=== PATIENT | female | born 1990 | race Caucasian/White ===

== ENCOUNTER 2017-04-20 19:14 | Emergency (ER) | payer BC ==
--- NOTE | 2017-04-20 19:51 | EDM.PDOC ---
ED HPI GENERAL MEDICAL PROBLEM - General Chief Complaint: Allergic Reaction Stated Complaint: REACTION TO DYE FROM XRAY Time Seen by Provider: 04/20/17 19:37 Source of Information: Reports: Patient History Limitations: Reports: No Limitations - History of Present Illness INITIAL COMMENTS - FREE TEXT/NARRATIVE: This is a 26-year-old female. Yesterday she had a hysterosalpingogram. She told a dance class that evening. Then about 1 AM this morning she woke up with the dog outside and noted she had a mild headache. She went back to sleep when she awoke this morning she had an increased headache basically in the forehead and the base of the skull. She denies any stiffness of her neck. She did call OB and let them know and they indicated to her that she might be having an allergic reaction to the dye. So they told her take some Benadryl and some ibuprofen and now her headache is much better but since it hasn't resolved she comes to the ER for evaluation. The headache is in the forehead about a 1 out of 10 in the back of the neck and skull may be a 3 out of 10. Her is a chiropractor and adjust her neck several times today so her neck feels good. She denies any swelling in her throat no difficulty in swallowing no difficulty in breathing. She's had no rash. She has been drinking lots of water and urinating a lot to try to get rid of this dye that she had yesterday. She denies any fever chills no cough no cold no other acute symptoms. Neck Pain Score (Numeric/FACES): 4 - Related Data Allergies Allergy/AdvReac Type Severity Reaction Status Date / Time ear drops. Allergy Cannot Uncoded 11/23/15 10:24 Remember Home Meds: Home Meds Control. 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 History: Reports: Endometriosis Neurological History: Reports: Other (See Below) Other Neuro History: TBI Psychiatric History: Reports: Anxiety, Depression, PTSD - Past Surgical History HEENT Surgical History: Reports: Tonsillectomy, Other (See Below) Other HEENT Surgeries/Procedures: ear surgery Musculoskeletal Surgical History: Reports: Other (See Below) Other Musculoskeletal Surgeries/Procedures:: compartment syndrome in legs Social & Family History - Family History Family Medical History: Noncontributory - Tobacco Use Smoking Status *Q: Never Smoker Second Hand Smoke Exposure: No - Caffeine Use Caffeine Use: Reports: None - Recreational Drug Use Recreational Drug Use: No - Living Situation & Occupation Living situation: Reports: , with Spouse Occupation: Employed ED ROS ALLERGIC REACTION - Review of Systems Review Of Systems: See Below Constitutional: Denies: Fever, Chills HEENT: Reports: No Symptoms Respiratory: Denies: Shortness of Breath, Wheezing, Cough Cardiovascular: Denies: Chest Pain Endocrine: Reports: No Symptoms GI/Abdominal: Reports: Nausea. Denies: Abdominal Pain, Vomiting : Reports: Frequency Musculoskeletal: Reports: No Symptoms Skin: Reports: Other (No rash or urticaria) Neurological: Reports: Headache Psychiatric: Reports: No Symptoms Hematologic/Lymphatic: Reports: No Symptoms ED EXAM GENERAL NO PERIP PULSE - Physical Exam Exam: See Below Exam Limited By: No Limitations General Appearance: Alert, WD/WN, No Apparent Distress Eye Exam: Bilateral Eye: Normal Inspection Ears: Normal External Exam Nose: Normal Inspection Throat/Mouth: Normal Inspection, Normal Lips, Normal Oropharynx, Normal Voice, No Airway Compromise Head: Normocephalic Neck: Supple, Non-Tender Respiratory/Chest: No Respiratory Distress, Lungs Clear, Normal Breath Sounds Cardiovascular: Regular Rate, Rhythm, No Murmur GI/Abdominal: Soft, Non-Tender, Other (Some mild uterus soreness noted by the patient) Back Exam: Full Range of Motion Extremities: Normal Inspection, Normal Range of Motion Neurological: Alert, Oriented Psychiatric: Normal Affect, Normal Mood Skin Exam: Warm, Dry, Other (No obvious rash or urticaria) Course - Vital Signs Last Recorded V/S: Last Vital Signs Temp 97.5 F 04/20/17 19:30 Pulse 81 04/20/17 19:30 Resp 18 04/20/17 19:30 BP 157/82 H 04/20/17 19:30 Pulse Ox 98 04/20/17 19:30 - Orders/Labs/Meds Labs: Laboratory Tests 04/20/17 04/20/17 Range/Units 20:05 20:05 WBC 7.11 (3.98-10.04) K/mm3 RBC 4.37 (3.98-5.22) M/mm3 Hgb 12.9 (11.2-15.7) gm/L Hct 39.3 (34.1-44.9) % MCV 89.9 (79.4-94.8) fl MCH 29.5 (25.6-32.2) pg MCHC 32.8 (32.2-35.5) g/dl RDW Std Deviation 44.4 (36.4-46.3) fL Plt Count 346 (182-369) K/mm3 MPV 9.2 L (9.4-12.3) fl Neut % (Auto) 59.8 (34.0-71.1) % Lymph % (Auto) 29.5 (19.3-51.7) % [place] % (Auto) 8.9 (4.7-12.5) % Eos % (Auto) 1.3 (0.7-5.8) Baso % (Auto) 0.4 (0.1-1.2) % Neut # (Auto) 4.25 (1.56-6.13) K/mm3 Lymph # (Auto) 2.10 (1.18-3.74) K/mm3 [place] # (Auto) 0.63 H (0.24-0.36) K/mm3 Eos # (Auto) 0.09 (0.04-0.36) K/mm3 Baso # (Auto) 0.03 (0.01-0.08) K/mm3 Sodium 142 (136-145) mEq/L Potassium 3.8 (3.5-5.1) mEq/L Chloride 107 (98-107) mEq/L Carbon Dioxide 25 (21-32) mEq/L Anion Gap 13.8 (5-15) BUN 10 (7-18) mg/dL Creatinine 0.8 (0.55-1.02) mg/dL Est Cr Clr Drug Dosing 104.96 mL/min Estimated GFR (MDRD) > 60 (>60) mL/min BUN/Creatinine Ratio 12.5 L (14-18) Glucose 103 (74-106) mg/dL Calcium 8.5 (8.5-10.1) mg/dL Total Bilirubin 0.2 (0.2-1.0) mg/dL AST 25 (15-37) U/L ALT 50 (14-59) U/L Alkaline Phosphatase 72 (46-116) U/L Total Protein 7.4 (6.4-8.2) g/dl Albumin 3.8 (3.4-5.0) g/dl Globulin 3.6 gm/dL Albumin/Globulin Ratio 1.1 (1-2) - Re-Assessments/Exams Free Text/Narrative Re-Assessment/Exam: 04/20/17 20:57 Spoke to the patient regarding the CBC and the chem panel and everything was absolutely normal. I encouraged her to take it easy over the weekend and continue with the Benadryl as needed and ibuprofen as needed. If her symptoms worsen she needs to return to the ER over the weekend otherwise follow-up with her doctor on Sunday. Departure - Departure Time of Disposition: 20:57 Disposition: Home, Self-Care 01 Condition: Good Clinical Impression: Adverse reaction to contrast media Qualifiers: Encounter type: initial encounter Qualified Code(s): T50.8X5A - Adverse effect of diagnostic agents, initial encounter - Discharge Information Referrals: PCP,None [Primary Care Provider] - Forms: ED Department Discharge Additional Instructions: Over the weekend and take it easy light activity rest and sleep, continue with the Benadryl 25 mg every 6 hours as needed, continue with the ibuprofen as needed, follow up with your family doctor on Sunday, return to the ER if your symptoms worsen over the weekend
== END 2017-04-20 21:03 | disposition home or self-care (01) ==
LOC: JD.ED 19:14
DX: R51 Headache (principal); T50.8X5A Adverse effect of diagnostic agents, initial encounter; Z88.8 Allergy status to other drugs, medicaments and biological substances
CPT/HCPCS: 36415; 80053; 85025; 99283; 99284

== ENCOUNTER 2018-08-11 20:36 | Inpatient (IN) | payer BC ==
[2018-08-11] MEDS ORDERED: Sodium Chloride 0.9% 10 ML Syringe FLUSH PRN (21:15)
[2018-08-11] MEDS ORDERED: Lactated Ringers 1,000 ML IV SCH (21:15)
[2018-08-11] MEDS ORDERED: Nalbuphine 10 MG/1 ML Vial IVPUSH PRN (21:15)
[2018-08-11] MEDS ORDERED: Oxytocin/Lactated Ringers 20 UNIT/1,000 ML BAG IV SCH (21:15)
[2018-08-11] MEDS ORDERED: Oxytocin 10 Units/1 ML SDV ONE (21:26)
[2018-08-11] MEDS ORDERED: Lidocaine 1% 50 ML MDV INJECT ONE (21:30)
[2018-08-11] MEDS ORDERED: Oxytocin 10 Units/1 ML SDV IM ONE (21:33)
--- NOTE | 2018-08-11 21:54 | PCM.LDHP ---
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 02/06/18 blood type O- positive antibody screen negative hemoglobin/hematocrit 13.6/40.3 platelets 367, 000, rubella immune, serology nonreactive, urine culture mixed meredith, hepatitis B surface antigen negative, HIV negative, GC chlamydia negative. TSH 1.631. 06/06/18 hemoglobin/hematocrit 12.5/38.0 platelets 269,000 OB glucose screen 154 06/12/18 3 hour glucose tolerance test fasting blood sugar 84, 1 hour 199, two- hour 180, 3 hour 125. 07/31/18 group B strep negative. Improves with: Reports: None Worsens with: Reports: None Associated Symptoms: Reports: N - Related Data Allergies/Adverse Reactions: Allergies Allergy/AdvReac Type Severity Reaction Status Date / Time ear drops. Allergy Cannot Uncoded 11/23/15 10:24 Remember IV contrast AdvReac Mild Headache Uncoded 04/20/17 21:20 Home Medications: Home Meds Control. 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: Reports: Endometriosis Neurological History: Reports: Other (See Below) Other Neuro History: TBI Psychiatric History: Reports: Anxiety, Depression, PTSD - Past Surgical History HEENT Surgical History: Reports: Tonsillectomy, Other (See Below) Other HEENT Surgeries/Procedures: ear surgery Musculoskeletal Surgical History: Reports: Other (See Below) Other Musculoskeletal Surgeries/Procedures:: compartment syndrome in legs Social & Family History - Family History Family Medical History: Noncontributory - Caffeine Use Caffeine Use: Reports: None - Living Situation & Occupation Living situation: Reports: , with Spouse Occupation: Employed H&P Review of Systems - Review of Systems: Review Of Systems: See Below General: Reports: No Symptoms HEENT: Reports: No Symptoms Pulmonary: Reports: No Symptoms Cardiovascular: Reports: No Symptoms Gastrointestinal: Reports: No Symptoms Genitourinary: Reports: No Symptoms Musculoskeletal: Reports: No Symptoms Skin: Reports: No Symptoms Psychiatric: Reports: No Symptoms Neurological: Reports: No Symptoms Hematologic/Lymphatic: Reports: No Symptoms Immunologic: Reports: No Symptoms L&D Exam - Exam Exam: See Below - OB Specific Fundal Height In cm: 37 Contraction Duration (sec): 60 Contraction Frequency (min): 3 Contraction Intensity: Moderate to Strong Movement: Active Heart Tones: Present Heart Tones per Min: 140 Heart Rate (FHR) Variability: Moderate (6-25 bmp) Presentation: Vertex - Camacho Score Camacho Score Cervix Position: Anterior Camacho Score Consistency: Soft Camacho Score Effacement: >80% Camacho Score Dilation: > 5 cm Camacho Score 's Station: +1, +2 Camacho Score Total: 13 - Exam General: Alert, Oriented HEENT: Conjunctiva Clear, Mucosa Moist & [place] Neck: Supple, Trachea Midline Lungs: Clear to Auscultation, Normal Respiratory Effort Cardiovascular: Regular Rate, Regular Rhythm GI/Abdominal Exam: Normal Bowel Sounds, Soft, Non-Tender Genitourinary: Normal external exam Extremities: Normal Inspection, Normal Range of Motion, Non-Tender, No Pedal Edema, Normal Capillary Refill Skin: Warm, Dry, Intact Psychiatric: Alert, Normal Affect, Normal Mood - Problem List (1) 37 weeks gestation of SNOMED Code(s): 31642784 ICD Code: Z3A.37 - 37 WEEKS GESTATION OF Status: Acute Current Visit: Yes Problem List Initiated/Reviewed/Updated: No Orders Last 24hrs: Active Orders 24 hr Category Date Time Status Patient Status [ADT] Routine ADT 08/11/18 21:15 Active Activity as Tolerated [RC] PFP Care 08/11/18 21:15 Active Communication Order [RC] ASDIRECTED Care 08/11/18 21:15 Active Heart Tones [RC] ASDIRECTED Care 08/11/18 21:15 Active Non Stress Test [RC] PER UNIT ROUTINE Care 08/11/18 21:14 Active Non Stress Test [RC] PER UNIT ROUTINE Care 08/11/18 21:15 Active Notify Provider [RC] PFP Care 08/11/18 21:15 Active Notify Provider [RC] PRN Care 08/11/18 21:15 Active Peripheral IV Care [RC] . DIRECTED Care 08/11/18 21:15 Active Vital Signs [RC] PER UNIT ROUTINE Care 08/11/18 21:14 Active Vital Signs [RC] PER UNIT ROUTINE Care 08/11/18 21:15 Active CBC WITH AUTO DIFF [HEME] Stat Lab 08/11/18 21:15 Ordered RAPID PLASMA REAGIN,RPR [CHEM] Routine Lab 08/11/18 21:15 Ordered Lactated Ringers [Ringers, Lactated] 1,000 ml Med 08/11/18 21:15 Active IV ASDIRECTED Nalbuphine [Nubain] Med 08/11/18 21:15 Active 10 mg IVPUSH Q2H PRN Oxytocin/Lactated Ringers [Pitocin in LR 20 Units/1,000 Med 08/11/18 21:15 Active ML] 20 unit in 1,000 ml IV .CONTINUOUS Sodium Chloride 0.9% [Saline Flush] Med 08/11/18 21:15 Active 10 ml FLUSH ASDIRECTED PRN Electronic Heart Tones Ext w TOCO [WOMSER] Oth 08/11/18 21:15 Ordered Routine Electronic Heart Tones Internal [WOMSER] Per Unit Oth 08/11/18 21:15 Ordered Routine Peripheral IV Insertion Adult [OM.PC] Routine Oth 08/11/18 21:15 Ordered Resuscitation Status Routine Resus Stat 08/11/18 21:14 Ordered Medication Orders Lactated Ringer's (Ringers, Lactated) 1,000 mls @ 100 mls/hr IV ASDIRECTED VALENCIA Oxytocin/Lactated Ringer's (Pitocin In Lr 20 Units/1,000 Ml) 20 unit in 1,000 mls @ 100 mls/hr IV .CONTINUOUS VALENCIA Nalbuphine HCl (Nubain) 10 mg IVPUSH Q2H PRN PRN Reason: Pain Sodium Chloride (Saline Flush) 10 ml FLUSH ASDIRECTED PRN PRN Reason: Keep Vein Open Assessment/Plan Comment:: Plan: Delivery
--- NOTE | 2018-08-11 21:58 | PCM.DEL ---
L & D Note - General Info Date of Service: 08/11/18 Mother's Due Date: 09/01/18 - Delivery Note Labor: Spontaneous Delivery Outcome: Livebirth (Male liveborn Sunday08/11/18 at 2127 hrs. INDRA nuchal cord 1 tight Apgars 8/9 weight pending) Infant Delivery Method: Spontaneous Vaginal Delivery-Single Infant Delivery Mode: Spontaneous Presentation: Left Occiput Anterior (INDRA) Nuchal Cord: Present (Times one tight reduced over the head) Prep: Povidone-Iodine (Betadine Anesthesia Type: Local (Or first-degree laceration midline repair) Anesthetic: Lidocaine (Xylocaine) 1% Plain Local Anesthetic Volume: 5cc Amniotic Fluid Description: Clear Episiotomy Type: None Laceration: 1st Degree (Midline) Suture type: Other (Monocryl) Suture size: 3-0 Placenta: Intact, Spontaneous (Spontaneous delivery of placenta at 2130 hrs. intact central cord insertion discarded) Cord: 3 Vessels Estimated Blood Loss: 250 Resuscitation Needed: No : Suctioned, Bulb Syringe, Stimulated, Warmed, [place] Used, Warmer Used Provider: David Varner Score 1 min: 8 Score 5 min: 9 - General Info Date of Service: 08/11/18 Functional Status: Reports: Pain Controlled - Review of Systems General: Reports: No Symptoms HEENT: Reports: No Symptoms Pulmonary: Reports: No Symptoms Cardiovascular: Reports: No Symptoms Gastrointestinal: Reports: No Symptoms Genitourinary: Reports: No Symptoms Musculoskeletal: Reports: No Symptoms Skin: Reports: No Symptoms Neurological: Reports: No Symptoms Psychiatric: Reports: No Symptoms - Patient Data Med Orders - Current: Current Medications Lactated Ringer's (Ringers, Lactated) 1,000 mls @ 100 mls/hr IV ASDIRECTED VALENCIA Oxytocin/Lactated Ringer's (Pitocin In Lr 20 Units/1,000 Ml) 20 unit in 1,000 mls @ 100 mls/hr IV .CONTINUOUS VALENCIA Nalbuphine HCl (Nubain) 10 mg IVPUSH Q2H PRN PRN Reason: Pain Sodium Chloride (Saline Flush) 10 ml FLUSH ASDIRECTED PRN PRN Reason: Keep Vein Open Discontinued Medications Oxytocin (Pitocin) Confirm Administered Dose 10 unit .ROUTE .[facility]-MED ONE Stop: 08/11/18 21:27 - Exam General: Alert, Oriented HEENT: Pupils Equal, Mucous Membr. Moist/[place] Neck: Supple Lungs: Clear to Auscultation, Normal Respiratory Effort Cardiovascular: Regular Rate, Regular Rhythm GI/Abdominal Exam: Normal Bowel Sounds (Female) Exam: Normal External Exam Extremities: Normal Inspection, Normal Range of Motion, Non-Tender, No Pedal Edema, Normal Capillary Refill Skin: Warm, Dry, Intact Neurological: No New Focal Deficit Psy/Mental Status: Alert, Normal Affect, Normal Mood - Problem List & Annotations (1) 37 weeks gestation of SNOMED Code(s): 71009869 Code(s): Z3A.37 - 37 WEEKS GESTATION OF Status: Acute Current Visit: Yes (2) Encounter for full-term uncomplicated delivery SNOMED Code(s): 563876844 Code(s): O80 - ENCOUNTER FOR FULL-TERM UNCOMPLICATED DELIVERY Status: Acute Current Visit: Yes (3) Nuchal cord without compression, delivered, current hospitalization SNOMED Code(s): 02681044, 905417876 Code(s): O69.81X0 - LABOR AND DEL COMP BY CORD AROUND NECK, W/O COMPRSN, UNSP Status: Acute Current Visit: Yes - Problem List Review Problem List Initiated/Reviewed/Updated: No - My Orders Last 24 Hours: My Active Orders 08/11/18 21:14 Non Stress Test [RC] PER UNIT ROUTINE Vital Signs [RC] PER UNIT ROUTINE Resuscitation Status Routine 08/11/18 21:15 Patient Status [ADT] Routine Activity as Tolerated [RC] PFP Communication Order [RC] ASDIRECTED Heart Tones [RC] ASDIRECTED Non Stress Test [RC] PER UNIT ROUTINE Notify Provider [RC] PFP Notify Provider [RC] PRN Peripheral IV Care [RC] . DIRECTED Vital Signs [RC] PER UNIT ROUTINE CBC WITH AUTO DIFF [HEME] Stat RAPID PLASMA REAGIN,RPR [CHEM] Routine Lactated Ringers [Ringers, Lactated] 1,000 ml IV ASDIRECTED Nalbuphine [Nubain] 10 mg IVPUSH Q2H PRN Oxytocin/Lactated Ringers [Pitocin in LR 20 Units/1,000 ML] 20 unit in 1,000 ml IV .CONTINUOUS Sodium Chloride 0.9% [Saline Flush] 10 ml FLUSH ASDIRECTED PRN Electronic Heart Tones Ext w TOCO [WOMSER] Routine Electronic Heart Tones Internal [WOMSER] Per Unit Routine Peripheral IV Insertion Adult [OM.PC] Routine - Plan Plan:: Plan: Delivery
[2018-08-11] MEDS ORDERED: Acetaminophen 325 MG Tab PO PRN (23:35)
[2018-08-11] MEDS ORDERED: Docusate Sodium 100 MG Cap PO PRN (23:35)
[2018-08-11] MEDS ORDERED: Lanolin 100% Cream 7 GM Tube TOP PRN (23:35)
[2018-08-11] MEDS ORDERED: Ibuprofen 600 MG Tab PO PRN (23:35)
[2018-08-11] MEDS ORDERED: Lactated Ringers 1,000 ML ONE (23:58)
[2018-08-12] MEDS ORDERED: Lactated Ringers 1,000 ML IV ONE (00:30)
[2018-08-12] MEDS: Witch Hazel Medicated Pads 40/Jar TOP PRN (03:34)
[2018-08-12] MEDS: Benzocaine/Menthol 20%-0.5% Spray 56 GM Canister TOP PRN (03:35)
--- NOTE | 2018-08-12 08:19 | PCM.PNPP ---
- General Info Date of Service: 08/12/18 Subjective Update: Blurred vision double vision or visual changes, no right upper quadrant pain no anxiety or feeling of hyperactivity. Functional Status: Reports: Pain Controlled Pain Score: 0 - Review of Systems General: Reports: No Symptoms HEENT: Reports: No Symptoms Pulmonary: Reports: No Symptoms Cardiovascular: Reports: No Symptoms Gastrointestinal: Reports: No Symptoms Genitourinary: Reports: No Symptoms Musculoskeletal: Reports: No Symptoms Skin: Reports: No Symptoms Neurological: Reports: No Symptoms Psychiatric: Reports: No Symptoms - General Info Date of Service: 08/12/18 - Patient Data Vital Signs - Most Recent: Last Vital Signs Temp 97.9 F 08/12/18 04:54 Pulse 70 08/12/18 04:54 Resp 14 08/12/18 04:54 BP 120/81 08/12/18 04:54 Pulse Ox 96 08/12/18 04:54 Weight - Most Recent: 167 lb 12.8 oz I&O - Last 24 Hours: Intake & Output 08/11/18 08/12/18 08/12/18 22:59 06:59 14:59 Intake Total 1999 Balance 1999 Lab Results - Last 24 Hours: Laboratory Results - last 24 hr 08/12/18 Range/Units 05:49 WBC 17.16 H (3.98-10.04) K/mm3 RBC 3.86 L (3.98-5.22) M/mm3 Hgb 11.8 (11.2-15.7) gm/L Hct 34.7 (34.1-44.9) % MCV 89.9 (79.4-94.8) fl MCH 30.6 (25.6-32.2) pg MCHC 34.0 (32.2-35.5) g/dl RDW Std Deviation 43.5 (36.4-46.3) fL Plt Count 215 (182-369) K/mm3 MPV 10.6 (9.4-12.3) fl Neut % (Auto) 78.9 H (34.0-71.1) % Lymph % (Auto) 11.7 L (19.3-51.7) % [place] % (Auto) 8.9 (4.7-12.5) % Eos % (Auto) 0.1 L (0.7-5.8) Baso % (Auto) 0.1 (0.1-1.2) % Neut # (Auto) 13.56 H (1.56-6.13) K/mm3 Lymph # (Auto) 2.00 (1.18-3.74) K/mm3 [place] # (Auto) 1.52 H (0.24-0.36) K/mm3 Eos # (Auto) 0.02 L (0.04-0.36) K/mm3 Baso # (Auto) 0.01 (0.01-0.08) K/mm3 Manual Slide Review Abnormal smear Med Orders - Current: Current Medications Acetaminophen (Tylenol) 650 mg PO Q4H PRN PRN Reason: mild pain or fever Benzocaine/Menthol (Dermoplast Pain Relief [place]) 0 gm TOP ASDIRECTED PRN PRN Reason: Perineal Comfort Measure Last Admin: 08/12/18 03:35 Dose: 1 canister Docusate Sodium (Colace) 100 mg PO BID PRN PRN Reason: Constipation Emollient Ointment (Lansinoh Hpa) 0 gm TOP ASDIRECTED PRN PRN Reason: Sore Nipples Ibuprofen (Motrin) 600 mg PO Q4H PRN PRN Reason: Mild pain or fever Witch Echo (Tucks) 1 pad TOP ASDIRECTED PRN PRN Reason: Perineal Comfort Measure Last Admin: 08/12/18 03:34 Dose: 1 jar Discontinued Medications Lactated Ringer's (Ringers, Lactated) 1,000 mls @ 100 mls/hr IV ASDIRECTED VALENCIA Oxytocin/Lactated Ringer's (Pitocin In Lr 20 Units/1,000 Ml) 20 unit in 1,000 mls @ 100 mls/hr IV .CONTINUOUS VALENCIA Last Admin: 08/11/18 22:12 Dose: 100 mls/hr Lactated Ringer's (Ringers, Lactated) Confirm Administered Dose 1,000 mls @ as directed .ROUTE .STK-MED ONE Stop: 08/11/18 23:59 Last Admin: 08/12/18 03:22 Dose: Not Given Lactated Ringer's (Ringers, Lactated) 1,000 mls @ 999 mls/hr IV .BOLUS ONE Stop: 08/12/18 01:30 Last Admin: 08/12/18 00:30 Dose: 999 mls/hr Lidocaine HCl (Xylocaine 1%) 50 ml INJECT ONETIME ONE Stop: 08/11/18 21:31 Last Admin: 08/11/18 21:30 Dose: 50 ml Nalbuphine HCl (Nubain) 10 mg IVPUSH Q2H PRN PRN Reason: Pain Oxytocin (Pitocin) Confirm Administered Dose 10 unit .ROUTE .STK-MED ONE Stop: 08/11/18 21:27 Last Admin: 08/12/18 03:23 Dose: Not Given Oxytocin (Pitocin) 10 unit IM ONETIME ONE Stop: 08/11/18 21:34 Last Admin: 08/11/18 21:33 Dose: 10 unit Sodium Chloride (Saline Flush) 10 ml FLUSH ASDIRECTED PRN PRN Reason: Keep Vein Open - Interaction Disposition, : at Bedside Interaction: Holding Infant Feeding: Breastfed ; Nursed Well Support Person: - Recovery Exam Fundal Tone: Firm Fundal Level: At Umbilicus Fundal Placement: Midline Lochia Amount: Small, Moderate Lochia Color: Rubra/Red Perineum Description: Other (see below) Other Perinuem Description: 1st degree laceration with repair Episiotomy/Laceration: Approximated Urinary Elimination: Voided - Exam General: Alert, Oriented HEENT: Pupils Equal, Pupils Reactive, Mucous Membr. Moist/[place] Neck: Supple Lungs: Clear to Auscultation, Normal Respiratory Effort Cardiovascular: Regular Rate, Regular Rhythm GI/Abdominal Exam: Normal Bowel Sounds, Soft, Non-Tender (uterus involuting normally), No Distention Extremities: Normal Inspection, Normal Range of Motion, Non-Tender, No Pedal Edema, Normal Capillary Refill Skin: Warm, Dry, Intact Wound/Incisions: Healing Well Neurological: No New Focal Deficit, Reflexes Equal Bilateral (3+, clonus 1 beat both ankles) Psy/Mental Status: Alert, Normal Affect, Normal Mood (no agitation) - Problem List & Annotations (1) 37 weeks gestation of SNOMED Code(s): 24835313 Code(s): Z3A.37 - 37 WEEKS GESTATION OF Status: Acute Current Visit: Yes (2) Encounter for full-term uncomplicated delivery SNOMED Code(s): 740429885 Code(s): O80 - ENCOUNTER FOR FULL-TERM UNCOMPLICATED DELIVERY Status: Acute Current Visit: Yes (3) Nuchal cord without compression, delivered, current hospitalization SNOMED Code(s): 72083663, 369969736 Code(s): O69.81X0 - LABOR AND DEL COMP BY CORD AROUND NECK, W/O COMPRSN, UNSP Status: Acute Current Visit: Yes (4) Hypertension, condition or complication SNOMED Code(s): 14640998, 54231595, 841371477 Code(s): O16.5 - UNSPECIFIED MATERNAL HYPERTENSION, COMP THE PUERPERIUM Status: Acute Current Visit: Yes - Problem List Review Problem List Initiated/Reviewed/Updated: No - My Orders Last 24 Hours: My Active Orders 08/11/18 21:14 Non Stress Test [RC] PER UNIT ROUTINE Vital Signs [RC] PER UNIT ROUTINE Resuscitation Status Routine 08/11/18 21:15 Activity as Tolerated [RC] PFP Communication Order [RC] ASDIRECTED Heart Tones [RC] ASDIRECTED Non Stress Test [RC] PER UNIT ROUTINE Notify Provider [RC] PFP Notify Provider [RC] PRN Peripheral IV Care [RC] . DIRECTED Vital Signs [RC] PER UNIT ROUTINE 08/11/18 23:35 Activity as Tolerated [RC] PER UNIT ROUTINE Vital Signs [RC] 03,09,15,21 Acetaminophen [Tylenol] 650 mg PO Q4H PRN Benzocaine/Menthol [Dermoplast Pain Relief [place]] See Dose Instructions TOP ASDIRECTED PRN Docusate Sodium [Colace] 100 mg PO BID PRN Ibuprofen [Motrin] 600 mg PO Q4H PRN Lanolin [Lansinoh HPA] See Dose Instructions TOP ASDIRECTED PRN Witch Echo [Tucks] 1 pad TOP ASDIRECTED PRN Assess Lochia [WOMSER] Per Unit Routine Assess Uterine Involution [WOMSER] Per Unit Routine Breast Pump [WOMSER] Per Unit Routine Heat Therapy [OM.PC] PRN Medication Administration Instruction [OM.PC] Routine Perineal Care [OM.PC] Per Unit Routine Sitz Bath [OM.PC] Per Unit Routine 08/11/18 Dinner Regular Diet [DIET] 08/12/18 05:49 RAPID PLASMA REAGIN,RPR [CHEM] Routine 08/12/18 23:35 Heat Therapy [OM.PC] PRN - Assessment Assessment:: PIH labs ordered. Patient looks stable no anxiety or agitation. - Plan Plan:: Plan: Delivery
--- NOTE | 2018-08-13 06:36 | PCM.DCSUM1 ---
Discharge Summary - Hospital Course Free Text/Narrative:: [facility] LIVE L/D Delivery Note Patient Name: ANNIKA STEIN Date of : 86 Patient Status: Inpatient Attending Provider: David Varner Date: 08/11/18 21:55 Initialization Date: 08/11/18 21:55 L & D Note - General Info Date of Service: 08/11/18 Mother's Due Date: 09/01/18 - Delivery Note Labor: Spontaneous Delivery Outcome: Livebirth (Male liveborn Sunday08/11/18 at 2127 hrs. INDRA nuchal cord 1 tight Apgars 8/9 weight pending) Infant Delivery Method: Spontaneous Vaginal Delivery-Single Infant Delivery Mode: Spontaneous Presentation: Left Occiput Anterior (INDRA) Nuchal Cord: Present (Times one tight reduced over the head) Prep: Povidone-Iodine (Betadine Anesthesia Type: Local (Or first-degree laceration midline repair) Anesthetic: Lidocaine (Xylocaine) 1% Plain Local Anesthetic Volume: 5cc Amniotic Fluid Description: Clear Episiotomy Type: None Laceration: 1st Degree (Midline) Suture type: Other (Monocryl) Suture size: 3-0 Placenta: Intact, Spontaneous (Spontaneous delivery of placenta at 2130 hrs. intact central cord insertion discarded) Cord: 3 Vessels Estimated Blood Loss: 250 Resuscitation Needed: No [place]: Suctioned, Bulb Syringe, Stimulated, Warmed, [place] Used, Warmer Used Provider: David Varner Score 1 min: 8 Score 5 min: 9 - General Info Date of Service: 08/11/18 Functional Status: Reports: Pain Controlled - Review of Systems General: Reports: No Symptoms HEENT: Reports: No Symptoms Pulmonary: Reports: No Symptoms Cardiovascular: Reports: No Symptoms Gastrointestinal: Reports: No Symptoms Genitourinary: Reports: No Symptoms Musculoskeletal: Reports: No Symptoms Skin: Reports: No Symptoms Neurological: Reports: No Symptoms Psychiatric: Reports: No Symptoms - Patient Data Med Orders - Current: Current Medications Lactated Ringer's (Ringers, Lactated) 1,000 mls @ 100 mls/hr IV ASDIRECTED VALENCIA Oxytocin/Lactated Ringer's (Pitocin In Lr 20 Units/1,000 Ml) 20 unit in 1,000 mls @ 100 mls/hr IV .CONTINUOUS VALENCIA Nalbuphine HCl (Nubain) 10 mg IVPUSH Q2H PRN PRN Reason: Pain Sodium Chloride (Saline Flush) 10 ml FLUSH ASDIRECTED PRN PRN Reason: Keep Vein Open Discontinued Medications Oxytocin (Pitocin) Confirm Administered Dose 10 unit .ROUTE .STK-MED ONE Stop: 08/11/18 21:27 - Exam General: Alert, Oriented HEENT: Pupils Equal, Mucous Membr. Moist/[place] Neck: Supple Lungs: Clear to Auscultation, Normal Respiratory Effort Cardiovascular: Regular Rate, Regular Rhythm GI/Abdominal Exam: Normal Bowel Sounds (Female) Exam: Normal External Exam Extremities: Normal Inspection, Normal Range of Motion, Non-Tender, No Pedal Edema, Normal Capillary Refill Skin: Warm, Dry, Intact Neurological: No New Focal Deficit Psy/Mental Status: Alert, Normal Affect, Normal Mood - Problem List & Annotations (1) 37 weeks gestation of SNOMED Code(s): 24765771 Code(s): Z3A.37 - 37 WEEKS GESTATION OF Status: Acute Current Visit: Yes (2) Encounter for full-term uncomplicated delivery SNOMED Code(s): 755603577 Code(s): O80 - ENCOUNTER FOR FULL-TERM UNCOMPLICATED DELIVERY Status: Acute Current Visit: Yes (3) Nuchal cord without compression, delivered, current hospitalization SNOMED Code(s): 70255711, 894437256 Code(s): O69.81X0 - LABOR AND DEL COMP BY CORD AROUND NECK, W/O COMPRSN, UNSP Status: Acute Current Visit: Yes - Problem List Review Problem List Initiated/Reviewed/Updated: No - My Orders Last 24 Hours: My Active Orders 08/11/18 21:14 Non Stress Test [RC] PER UNIT ROUTINE Vital Signs [RC] PER UNIT ROUTINE Resuscitation Status Routine 08/11/18 21:15 Patient Status [ADT] Routine Activity as Tolerated [RC] PFP Communication Order [RC] ASDIRECTED Heart Tones [RC] ASDIRECTED Non Stress Test [RC] PER UNIT ROUTINE Notify Provider [RC] PFP Notify Provider [RC] PRN Peripheral IV Care [RC] . DIRECTED Vital Signs [RC] PER UNIT ROUTINE CBC WITH AUTO DIFF [HEME] Stat RAPID PLASMA REAGIN,RPR [CHEM] Routine Lactated Ringers [Ringers, Lactated] 1,000 ml IV ASDIRECTED Nalbuphine [Nubain] 10 mg IVPUSH Q2H PRN Oxytocin/Lactated Ringers [Pitocin in LR 20 Units/1,000 ML] 20 unit in 1,000 ml IV .CONTINUOUS Sodium Chloride 0.9% [Saline Flush] 10 ml FLUSH ASDIRECTED PRN Electronic Heart Tones Ext w TOCO [WOMSER] Routine Electronic Heart Tones Internal [WOMSER] Per Unit Routine Peripheral IV Insertion Adult [OM.PC] Routine - Plan Plan:: Plan: Delivery HPI Initial Comments: [facility] LIVE L/D Delivery Note Patient Name: ANNIKA STEIN Date of : 86 Patient Status: Inpatient Attending Provider: David Varner Date: 08/11/18 21:55 Initialization Date: 08/11/18 21:55 L & D Note - General Info Date of Service: 08/11/18 Mother's Due Date: 09/01/18 - Delivery Note Labor: Spontaneous Delivery Outcome: Livebirth (Male liveborn Sunday08/11/18 at 2127 hrs. INDRA nuchal cord 1 tight Apgars 8/9 weight pending) Delivery Method: Spontaneous Vaginal Delivery-Single Infant Delivery Mode: Spontaneous Presentation: Left Occiput Anterior (INDRA) Nuchal Cord: Present (Times one tight reduced over the head) Prep: Povidone-Iodine (Betadine Anesthesia Type: Local (Or first-degree laceration midline repair) Anesthetic: Lidocaine (Xylocaine) 1% Plain Local Anesthetic Volume: 5cc Amniotic Fluid Description: Clear Episiotomy Type: None Laceration: 1st Degree (Midline) Suture type: Other (Monocryl) Suture size: 3-0 Placenta: Intact, Spontaneous (Spontaneous delivery of placenta at 2130 hrs. intact central cord insertion discarded) Cord: 3 Vessels Estimated Blood Loss: 250 Resuscitation Needed: No : Suctioned, Bulb Syringe, Stimulated, Warmed, [place] Used, Warmer Used Provider: David Varner Score 1 min: 8 Score 5 min: 9 - General Info Date of Service: 08/11/18 Functional Status: Reports: Pain Controlled - Review of Systems General: Reports: No Symptoms HEENT: Reports: No Symptoms Pulmonary: Reports: No Symptoms Cardiovascular: Reports: No Symptoms Gastrointestinal: Reports: No Symptoms Genitourinary: Reports: No Symptoms Musculoskeletal: Reports: No Symptoms Skin: Reports: No Symptoms Neurological: Reports: No Symptoms Psychiatric: Reports: No Symptoms - Patient Data Med Orders - Current: Current Medications Lactated Ringer's (Ringers, Lactated) 1,000 mls @ 100 mls/hr IV ASDIRECTED VALENCIA Oxytocin/Lactated Ringer's (Pitocin In Lr 20 Units/1,000 Ml) 20 unit in 1,000 mls @ 100 mls/hr IV .CONTINUOUS VALENCIA Nalbuphine HCl (Nubain) 10 mg IVPUSH Q2H PRN PRN Reason: Pain Sodium Chloride (Saline Flush) 10 ml FLUSH ASDIRECTED PRN PRN Reason: Keep Vein Open Discontinued Medications Oxytocin (Pitocin) Confirm Administered Dose 10 unit .ROUTE .STK-MED ONE Stop: 08/11/18 21:27 - Exam General: Alert, Oriented HEENT: Pupils Equal, Mucous Membr. Moist/[place] Neck: Supple Lungs: Clear to Auscultation, Normal Respiratory Effort Cardiovascular: Regular Rate, Regular Rhythm GI/Abdominal Exam: Normal Bowel Sounds (Female) Exam: Normal External Exam Extremities: Normal Inspection, Normal Range of Motion, Non-Tender, No Pedal Edema, Normal Capillary Refill Skin: Warm, Dry, Intact Neurological: No New Focal Deficit Psy/Mental Status: Alert, Normal Affect, Normal Mood - Problem List & Annotations (1) 37 weeks gestation of SNOMED Code(s): 19114841 Code(s): Z3A.37 - 37 WEEKS GESTATION OF Status: Acute Current Visit: Yes (2) Encounter for full-term uncomplicated delivery SNOMED Code(s): 856039137 Code(s): O80 - ENCOUNTER FOR FULL-TERM UNCOMPLICATED DELIVERY Status: Acute Current Visit: Yes (3) Nuchal cord without compression, delivered, current hospitalization SNOMED Code(s): 54907062, 907043412 Code(s): O69.81X0 - LABOR AND DEL COMP BY CORD AROUND NECK, W/O COMPRSN, UNSP Status: Acute Current Visit: Yes - Problem List Review Problem List Initiated/Reviewed/Updated: No - My Orders Last 24 Hours: My Active Orders 08/11/18 21:14 Non Stress Test [RC] PER UNIT ROUTINE Vital Signs [RC] PER UNIT ROUTINE Resuscitation Status Routine 08/11/18 21:15 Patient Status [ADT] Routine Activity as Tolerated [RC] PFP Communication Order [RC] ASDIRECTED Heart Tones [RC] ASDIRECTED Non Stress Test [RC] PER UNIT ROUTINE Notify Provider [RC] PFP Notify Provider [RC] PRN Peripheral IV Care [RC] . DIRECTED Vital Signs [RC] PER UNIT ROUTINE CBC WITH AUTO DIFF [HEME] Stat RAPID PLASMA REAGIN,RPR [CHEM] Routine Lactated Ringers [Ringers, Lactated] 1,000 ml IV ASDIRECTED Nalbuphine [Nubain] 10 mg IVPUSH Q2H PRN Oxytocin/Lactated Ringers [Pitocin in LR 20 Units/1,000 ML] 20 unit in 1,000 ml IV .CONTINUOUS Sodium Chloride 0.9% [Saline Flush] 10 ml FLUSH ASDIRECTED PRN Electronic Heart Tones Ext w TOCO [WOMSER] Routine Electronic Heart Tones Internal [WOMSER] Per Unit Routine Peripheral IV Insertion Adult [OM.PC] Routine - Plan Plan:: Plan: Delivery Brief History: [facility] LIVE . L/D Delivery Note. Patient Name: ANNIKA STEIN Record Number: [id number]. Date of : Patient Status: Inpatient. Attending Provider: David Varner Number: [id number]. Date: 08/11/18 21:55Initialization Date: 08/11/18 21:55. L & D Note. - General Info. Date of Service: 08/11/18. Mother's Due Date: 09/01/18. - Delivery Note. Labor: Spontaneous. Delivery Outcome: Livebirth ( Male liveborn Sunday08/11/18 at 2127 hrs. INDRA nuchal cord 1 tight Apgars 8/9 weight pending). Infant Delivery Method: Spontaneous Vaginal Delivery-Single. Infant Delivery Mode: Spontaneous. Presentation: Left Occiput Anterior ( INDRA). Nuchal Cord: Present (Times one tight reduced over the head). Prep: Povidone-Iodine (Betadine. Anesthesia Type: Local (Or first-degree laceration midline repair). Anesthetic: Lidocaine (Xylocaine) 1% Plain. Local Anesthetic Volume: 5cc. Amniotic Fluid Description: Clear. Episiotomy Type: None. Laceration: 1st Degree (Midline). Suture type: Other (Monocryl). Suture size: 3-0. Placenta: Intact, Spontaneous (Spontaneous delivery of placenta at 2130 hrs. intact central cord insertion discarded). Cord: 3 Vessels. Estimated Blood Loss: 250. Resuscitation Needed: No. : Suctioned, Bulb Syringe, Stimulated, Warmed, [place] Used, Warmer Used. Provider: David Varner. Score 1 min: 8. Score 5 min: 9. - General Info. Date of Service: 08/11/18. Functional Status: Reports: Pain Controlled. - Review of Systems. General: Reports: No Symptoms. HEENT: Reports: No Symptoms. Pulmonary: Reports: No Symptoms. Cardiovascular: Reports: No Symptoms. Gastrointestinal: Reports: No Symptoms. Genitourinary: Reports: No Symptoms. Musculoskeletal: Reports: No Symptoms. Skin: Reports: No Symptoms. Neurological: Reports: No Symptoms. Psychiatric: Reports: No Symptoms. - Patient Data. Med Orders - Current: Current Medications. Lactated Ringer's ( Ringers, Lactated) 1,000 mls @ 100 mls/hr IV ASDIRECTED VALENCIA. Oxytocin/ Lactated Ringer's (Pitocin In Lr 20 Units/1,000 Ml) 20 unit in 1,000 mls @ 100 mls/hr IV .CONTINUOUS VALENCIA. Nalbuphine HCl (Nubain) 10 mg IVPUSH Q2H PRN. PRN Reason: Pain. Sodium Chloride (Saline Flush) 10 ml FLUSH ASDIRECTED PRN. PRN Reason: Keep Vein Open. Discontinued Medications. Oxytocin (Pitocin) Confirm Administered Dose [address]. Stop: 08/11/18 21:27. - Exam. General: Alert, Oriented. HEENT: Pupils Equal, Mucous Membr. Moist/[place]. Neck : Supple. Lungs: Clear to Auscultation, Normal Respiratory Effort. Cardiovascular: Regular Rate, Regular Rhythm. GI/Abdominal Exam: Normal Bowel Sounds. (Female) Exam: Normal External Exam. Extremities: Normal Inspection , Normal Range of Motion, Non-Tender, No Pedal Edema, Normal Capillary Refill. Skin: Warm, Dry, Intact. Neurological: No New Focal Deficit. Psy/Mental Status : Alert, Normal Affect, Normal Mood. - Problem List & Annotations. (1) 37 weeks gestation of . SNOMED Code(s): 11479514. Code(s): Z3A.37 - 37 WEEKS GESTATION OF Status: Acute Current Visit: Yes. (2) Encounter for full-term uncomplicated delivery. SNOMED Code(s): 602251428. Code(s): O80 - ENCOUNTER FOR FULL-TERM UNCOMPLICATED DELIVERY Status: Acute Current Visit: Yes. (3) Nuchal cord without compression, delivered, current hospitalization. SNOMED Code(s): 57418581, 494116805. Code(s): O69.81X0 - LABOR AND DEL COMP BY CORD AROUND NECK, W/O COMPRSN, UNSP Status: Acute Current Visit: Yes. - Problem List Review. Problem List Initiated/Reviewed/ Updated: No. - My Orders. Last 24 Hours: My Active Orders. 08/11/18 21:14. Non Stress Test [RC] PER UNIT ROUTINE. Vital Signs [RC] PER UNIT ROUTINE. Resuscitation Status Routine. 08/11/18 21:15. Patient Status [ADT] Routine. Activity as Tolerated [RC] PFP. Communication Order [RC] ASDIRECTED. Heart Tones [RC] ASDIRECTED. Non Stress Test [RC] PER UNIT ROUTINE. Notify Provider [RC] PFP. Notify Provider [RC] PRN. Peripheral IV Care [RC] . DIRECTED. Vital Signs [RC] PER UNIT ROUTINE. CBC WITH AUTO DIFF [HEME] Stat. RAPID PLASMA REAGIN,RPR [CHEM] Routine. Lactated Ringers [Ringers , Lactated] 1,000 ml IV ASDIRECTED. Nalbuphine [Nubain] 10 mg IVPUSH Q2H PRN. Oxytocin/Lactated Ringers [Pitocin in LR 20 Units/1,000 ML] 20 unit in 1, 000 ml IV .CONTINUOUS. Sodium Chloride 0.9% [Saline Flush] 10 ml FLUSH ASDIRECTED PRN. Electronic Heart Tones Ext w TOCO [WOMSER] Routine. Electronic Heart Tones Internal [WOMSER] Per Unit Routine. Peripheral IV Insertion Adult [OM.PC] Routine. - Plan. Plan:: Plan: Delivery Diagnosis: Stroke: No - Discharge Data Discharge Date: 08/13/18 Discharge Disposition: Home, Self-Care 01 Condition: Good - Discharge Diagnosis/Problem(s) (1) 37 weeks gestation of SNOMED Code(s): 85903102 ICD Code: Z3A.37 - 37 WEEKS GESTATION OF Status: Acute Current Visit: Yes (2) Encounter for full-term uncomplicated delivery SNOMED Code(s): 640379895 ICD Code: O80 - ENCOUNTER FOR FULL-TERM UNCOMPLICATED DELIVERY Status: Acute Current Visit: Yes (3) Nuchal cord without compression, delivered, current hospitalization SNOMED Code(s): 46777594, 565482456 ICD Code: O69.81X0 - LABOR AND DEL COMP BY CORD AROUND NECK, W/O COMPRSN, UNSP Status: Acute Current Visit: Yes (4) Hypertension, condition or complication SNOMED Code(s): 17377045, 07801502, 174689707 ICD Code: O16.5 - UNSPECIFIED MATERNAL HYPERTENSION, COMP THE PUERPERIUM Status: Acute Current Visit: Yes - Patient Summary/Data Complications: Patient had transient hypertension yesterday but that has resolved today. On no medications. Consults: None Hospital Course: Uneventful - Patient Instructions Diet: Usual Diet as Tolerated Driving: Do Not Drive ([place] 48 hours) Showering/Bathing: May Shower Notify Provider of: Fever, Increased Pain, Swelling and Redness, Drainage, Nausea and/or Vomiting - Discharge Plan *PRESCRIPTION DRUG MONITORING PROGRAM REVIEWED*: Not Applicable *COPY OF PRESCRIPTION DRUG MONITORING REPORT IN PATIENT [place]: Not Applicable Home Medications: Home Meds Ascorbate Calcium [Vitamin C] 1 tab PO DAILY 08/12/18 [History] Calcium Carb/Magnesium Cmb #10 [David-Mag] 1 tab PO DAILY 08/12/18 [History] Cholecalciferol (Vitamin D3) [D3-2000] 2,000 unit PO DAILY 08/12/18 [History] Docusate Sodium [Colace] 1 cap PO DAILY 08/12/18 [History] Fish Oil/[place]-3 Fatty Acids [Fish Oil 1,000 MG] 2 cap PO DAILY 08/12/18 [ History] L.acidoph,Paracasei, B.lactis [Probiotic] 1 cap PO DAILY 08/12/18 [History] Loratadine [Claritin] 1 cap PO DAILY 08/12/18 [History] PNV95/Ferrous Fumarate/FA [ Tablet] 1 tab PO DAILY 08/12/18 [History] Acetaminophen [Tylenol] 650 mg PO Q6H PRN tablet 08/13/18 [Rx] Ibuprofen [Motrin] 600 mg PO Q6H PRN tablet 08/13/18 [Rx] Lanolin [Lansinoh HPA] 1 applic TOP ASDIRECTED PRN tube 08/13/18 [Rx] Kerry Jeongel [Tucks] 1 pad TOP ASDIRECTED PRN pad 08/13/18 [Rx] Referrals: David Varner MD [Primary Care Provider] - (Dr Long 2 weeks) - Discharge Summary/Plan Comment DC Time >30 min.: No - Patient Data Vitals - Most Recent: Last Vital Signs Temp 98.1 F 08/12/18 20:23 Pulse 69 08/13/18 01:55 Resp 14 08/13/18 01:55 BP 116/67 08/13/18 01:55 Pulse Ox 98 08/13/18 01:55 Weight - Most Recent: 167 lb 12.8 oz I&O - Last 24 hours: Intake & Output 08/12/18 08/12/18 08/13/18 14:59 22:59 06:59 Intake Total 120 300 Balance 120 300 Lab Results - Last 24 hrs: Laboratory Results - last 24 hr 08/12/18 08/12/18 08/12/18 Range/Units 05:49 05:49 05:49 Manual Slide Review Abnormal smear BUN 8 (7-18) mg/dL Creatinine 0.7 (0.55-1.02) mg/dL Est Cr Clr Drug Dosing 122.81 mL/min Estimated GFR (MDRD) > 60 (>60) mL/min Uric Acid 4.4 (2.6-6.0) mg/dL AST 28 (15-37) U/L ALT 18 (14-59) U/L Lactate Dehydrogenase 200 (81-234) U/L RPR Non-reactive (NONREACTIVE) Med Orders - Current: Current Medications Acetaminophen (Tylenol) 650 mg PO Q4H PRN PRN Reason: mild pain or fever Benzocaine/Menthol (Dermoplast Pain Relief [place]) 0 gm TOP ASDIRECTED PRN PRN Reason: Perineal Comfort Measure Last Admin: 08/12/18 03:35 Dose: 1 canister Docusate Sodium (Colace) 100 mg PO BID PRN PRN Reason: Constipation Emollient Ointment (Lansinoh Hpa) 0 gm TOP ASDIRECTED PRN PRN Reason: Sore Nipples Ibuprofen (Motrin) 600 mg PO Q4H PRN PRN Reason: Mild pain or fever Witch Ceho (Tucks) 1 pad TOP ASDIRECTED PRN PRN Reason: Perineal Comfort Measure Last Admin: 08/12/18 03:34 Dose: 1 jar Discontinued Medications Lactated Ringer's (Ringers, Lactated) 1,000 mls @ 100 mls/hr IV ASDIRECTED VALENCIA Oxytocin/Lactated Ringer's (Pitocin In Lr 20 Units/1,000 Ml) 20 unit in 1,000 mls @ 100 mls/hr IV .CONTINUOUS VALENCIA Last Admin: 08/11/18 22:12 Dose: 100 mls/hr Lactated Ringer's (Ringers, Lactated) Confirm Administered Dose 1,000 mls @ as directed .ROUTE .STK-MED ONE Stop: 08/11/18 23:59 Last Admin: 08/12/18 03:22 Dose: Not Given Lactated Ringer's (Ringers, Lactated) 1,000 mls @ 999 mls/hr IV .BOLUS ONE Stop: 08/12/18 01:30 Last Admin: 08/12/18 00:30 Dose: 999 mls/hr Lidocaine HCl (Xylocaine 1%) 50 ml INJECT ONETIME ONE Stop: 08/11/18 21:31 Last Admin: 08/11/18 21:30 Dose: 50 ml Nalbuphine HCl (Nubain) 10 mg IVPUSH Q2H PRN PRN Reason: Pain Oxytocin (Pitocin) Confirm Administered Dose 10 unit .ROUTE .STK-MED ONE Stop: 08/11/18 21:27 Last Admin: 08/12/18 03:23 Dose: Not Given Oxytocin (Pitocin) 10 unit IM ONETIME ONE Stop: 08/11/18 21:34 Last Admin: 08/11/18 21:33 Dose: 10 unit Sodium Chloride (Saline Flush) 10 ml FLUSH ASDIRECTED PRN PRN Reason: Keep Vein Open
[2018-08-13] MEDS: Benzocaine/Menthol 20%-0.5% Spray 56 GM Canister TOP PRN (09:22)
[2018-08-13] MEDS: Witch Hazel Medicated Pads 40/Jar TOP PRN (09:23)
== END 2018-08-13 09:59 | disposition home or self-care (01) | DRG 560 ==
LOC: JD.OBCHECK 20:36 → JD.OB 21:22 → OBSVTOIN 21:27 → JD.OB 21:27 → UNDODISIN 08-13 09:59
PROVIDERS: ADMIT Obstetrics & Gynecology; ATTEND Obstetrics & Gynecology
PROC: 10E0XZZ Delivery of Products of Conception, External Approach (ICD-10-PCS; principal; 2018-08-11)
PROC: 0HQ9XZZ Repair Perineum Skin, External Approach (ICD-10-PCS; 2018-08-11)
DX: O69.1XX0 Labor and delivery complicated by cord around neck, with compression, not applicable or unspecified (principal); O70.0 First degree perineal laceration during delivery; O16.5 Unspecified maternal hypertension, complicating the puerperium; Z3A.37 37 weeks gestation of pregnancy; Z37.0 Single live birth
CPT/HCPCS: 36415; 59409; 82565; 83615; 84450; 84460; 84520; 84550; 85025; 86592; A9270-GY; J2001; J2590; J7120

== ENCOUNTER 2020-01-13 16:05 | Inpatient (IN) | payer OTHER ==
[2020-01-13] MEDS ORDERED: Nalbuphine 10 MG/1 ML Vial IVPUSH PRN (18:28)
[2020-01-13] MEDS ORDERED: Sodium Chloride 0.9% 10 ML Syringe FLUSH PRN (18:28)
[2020-01-13] MEDS ORDERED: Lactated Ringers 1,000 ML IV SCH (18:30)
[2020-01-13] MEDS ORDERED: Oxytocin/Lactated Ringers 10 UNIT/1,000 ML BAG IV SCH (18:30)
--- NOTE | 2020-01-13 20:42 | PCM.LDHP ---
L&D History of Present Illness - General Date of Service: 01/13/20 Admit Problem/Dx: Patient Status Order with Admit Dx/Problem 01/13/20 16:56 Patient Status [ADT] Routine Admission Diagnosis/Problem Admission Diagnosis/Problem - planned 01/13/20 20:31 Eliza miller 1-year-old 3 para 1-0-1-1 white female who is presently at 9-5/7 weeks gestational age with an DANE of 01/15/2020 who is admitted in active labor with progressive cervical dilation. Source of Information: Patient History Limitations: Reports: No Limitations - History of Present Illness Introduction:: Eliza miller 1-year-old 3 para 1-0-1-1 white female who is presently at 9-5/7 weeks gestational age with an DANE of 01/15/2020 who is admitted in active labor with progressive cervical dilation. Already in labor approximately early a.m. on 01/13/2020. She has progressed throughout the day and upon admission was alex every 5 to 7 minutes, moderate intensity. Her cervix has dilated to 4 cm when it was 2+, 90% effaced, soft, mid position and -3 on last evaluation on 01/12/2020. heart tones reassuring. Contractions pattern per electronic monitor supports above contraction frequency described. Underwent AROM with resultant clear amniotic fluid. 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 Patient had menarche at approximately age 11. Cycles q. 28 to 29 days. Last menstrual period was 04/10/2019. is dated by her LMP which was certain. Patient not using any contraception at the time of the conception. Previous pregnancies include a miscarriage which occurred on 07/25/2017first trimester. And a on 08/11/2018 at 37 weeks gestational age after 38 hours of labor. 7 pound 2 ounce male infant at [facility]. No labor pain control used at that time. No STDs or abnormal Pap smears reported in the past. history: Patient's LMP 04/10/2019 was certain. Her care was initiated at approximately 11 weeks gestational age. Ultrasound was performed at that time and again on 08/28/2019 and 09/25/2019 all support her LMP dating. course was relatively unremarkable. She had a normal weight gain of 33 pounds from 140 to 173.6 pounds. Her vital signs remained stable throughout the course. Fundal height growth was appropriate. Patient is group B strep negative. She declined flu shots and Tdap vaccinations. She declined gen etic testing. 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 She had a normal 1 hour GTT. She suffers from posttraumatic stress disorder related to a, that had previously occurred. She had symptoms of an umbilical hernia. Patient's immunization record shows rubella rubella immunity. Hepatitis A vaccinations November 2015. Hepatitis B vaccinations November 2015. Last Td February 2002 Laboratory testing in shows blood to be O+ with a negative antibody screen. Hemoglobin is 14.2 hematocrit was 91.3 upon first visit platelets at that time were 354,000. She is rubella immune. RPR is nonreactive. Urine culture was negative. Hepatitis B surface antigen and HIV assays were both negative. Chlamydia and gonorrhea tests were both negative. TSH on 06/26/2019 was normal at 2.586 milliunits/L. Second trimester testing showed hemoglobin 12.7 g/dL and platelets of 304,000. CT was normal at 120. Patient is group B strep screen performed third trimester was negative. Free T4 on 06/26/2019 was also normal at. Allergies: Latex which causes a rash Medications: 1. Vitamin D3 tablets 10,000 units daily 2. Probiotic oral capsule 1 capsule daily 3. Calcium magnesium citrate tablets 1 tablet daily 4. Fish oil caps 1 daily 5. vitamins 1 daily 6. Bare vitamin C 1000 mg daily Past medical history: 1. x1 2. Miscarriage x1 first trimester 3. Head trauma with resultant posttraumatic stress disorder. Also anxiety created by this event. Patient being treated by counselor and by Dr. Lynn in [facility] neurologist. 4. Endometriosis 5. Infertility Past surgical history: 1. Dental surgery 2016 family history: Mother and sister have had multiple miscarriage. Mother is alive with history of hypertension. She has a CAD and LA with stent placement. Father with double coronary artery bypass surgery has diabetes mellitus. 3 brothers 1 with heart valve replacement. 1 sister alive with hypothyroidism. Maternal grandmother is alive and well. Maternal grandfather at a young age secondary to alcohol abusedied of cancertype unknown. Paternal grandmother alive and well. Paternal grandfather in his 70s from bladder cancer. Also had alcohol and tobacco abuse. No anesthesia, bleeding, blood clotting or related problems noted. Social history: Patient is . is Magdaleno. She is a college graduate. She is a [id number] mom. She does not use any significant also alcohol, drugs or tobacco. She lives in [place], [place]. Review of systems: In general patient has no complaints. She is having contractions which are mild upon admission. Skin: Negative Lungs: No infectious symptoms or shortness of breath Cardiovascular: No chest pain or exercise intolerance Breasts: No lumps, changes in size, pain, dimpling, discharge or axillary or supraclavicular concerns. Pain is related to noted. Patient plans to breast-feed. GI: Negative : Body habitus changes secondary to . Musculoskeletal: Negative Neurological: Negative Physical exam: In general the patient is well-developed, well-nourished, pleasant female of stated age in no acute distress. Last evaluation clinic patient's blood pressure is 122/64. Weight was 173.6 with a pregravid weight of 140. Height is 5 feet 8. Pregravid body mass index is 20.7. Skin is warm dry without lesions. HEENT, neck and back within normal limits. Lungs are clear with good breath sounds in all lung khan. Cardiovascular exam shows regular and rhythm without murmurs. Breast exam is deferred having been done at first visit and found to be normal it is not repeated at this time. Patient plans to breast-feed. Abdomen is gravid with fundal height on last evaluation clinic at 38 cm. Baby in vertex presentation by Fransisco maneuver. Genital exam per digital evaluation shows cervix to be 4 cm, 90% effaced, -2, mid position, very soft, bag parry intactpatient underwent AROM with resultant clear amniotic fluid. Extremities and neurological exam are grossly within normal limits. - Related Data Allergies/Adverse Reactions: Allergies Allergy/AdvReac Type Severity Reaction Status Date / Time latex Allergy Rash Verified 08/12/18 03:46 ear drops. Allergy Cannot Uncoded 11/23/15 10:24 Remember IV contrast AdvReac Mild Headache Uncoded 04/20/17 21:20 Home Medications: Home Meds Calcium Carb/Magnesium Ox,Carb [David-Mag] 1 tab PO DAILY 08/12/18 [History] Fish Oil/[place]-3 Fatty Acids [Fish Oil 1,000 MG] 2 cap PO DAILY 08/12/18 [Histo ry] L.acidoph,Paracasei, B.lactis [Probiotic] 1 cap PO DAILY 08/12/18 [History] Pnv No.95/Ferrous Fum/Folic AC [ Tablet] 1 tab PO DAILY 08/12/18 [History] Acetaminophen [Tylenol] 650 mg PO Q6H PRN tablet 08/13/18 [Rx] Past Medical History HEENT History: Reports: Impaired Vision Cardiovascular History: Reports: Other (See Below) Other Cardiovascular History: resolved heart murmur Other Respiratory History: dysautonomia Gastrointestinal History: Reports: Chronic Constipation 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: Reports: Endometriosis Neurological History: Reports: Head Trauma, Other (See Below) Other Neuro History: TBI Psychiatric History: Reports: Anxiety, Depression, PTSD Endocrine/Metabolic History: Reports: Diabetes, Gestational, Other (See Below) Other Endocrine/Metabolic History: Hashimotos - Past Surgical History HEENT Surgical History: Reports: Tonsillectomy, Other (See Below) Other HEENT Surgeries/Procedures: ear surgery, teeth repaired after head fall injury Cardiovascular Surgical History: Reports: None GI Surgical History: Reports: None Musculoskeletal Surgical History: Reports: Other (See Below) Other Musculoskeletal Surgeries/Procedures:: compartment syndrome in legs Social & Family History - Family History Family Medical History: No Pertinent Family History - Tobacco Use Tobacco Use Status *Q: Never Tobacco User Second Hand Smoke Exposure: No - Caffeine Use Caffeine Use: Reports: None - Recreational Drug Use Recreational Drug Use: No - Living Situation & Occupation Living situation: Reports: , with Spouse Occupation: Employed H&P Review of Systems - Review of Systems: Review Of Systems: See Below L&D Exam - Exam Exam: See Below - Vital Signs Vital Signs: Last Vital Signs Temp 37.2 C 01/13/20 16:36 Pulse 85 01/13/20 16:36 Resp 16 01/13/20 16:36 BP 130/76 01/13/20 16:36 Pulse Ox 99 01/13/20 16:36 Weight: 80.331 kg - Patient Data Lab Results Last 24 hrs: Laboratory Results - last 24 hr 01/13/20 01/13/20 Range/Units 18:33 18:40 WBC 11.89 H (3.98-10.04) K/mm3 RBC 4.43 (3.98-5.22) M/mm3 Hgb 13.3 (11.2-15.7) gm/dl Hct 39.7 (34.1-44.9) % MCV 89.6 D (79.4-94.8) fl MCH 30.0 (25.6-32.2) pg MCHC 33.5 (32.2-35.5) g/dl RDW Std Deviation 46.8 H (36.4-46.3) fL Plt Count 266 (182-369) K/mm3 MPV 10.3 (9.4-12.3) fl Neut % (Auto) 75.9 H (34.0-71.1) % Lymph % (Auto) 15.5 L (19.3-51.7) % Dewey % (Auto) 8.1 (4.7-12.5) % Eos % (Auto) 0.3 L (0.7-5.8) Baso % (Auto) 0.2 (0.1-1.2) % Neut # (Auto) 9.04 H (1.56-6.13) K/mm3 Lymph # (Auto) 1.84 (1.18-3.74) K/mm3 Dewey # (Auto) 0.96 H (0.24-0.36) K/mm3 Eos # (Auto) 0.03 L (0.04-0.36) K/mm3 Baso # (Auto) 0.02 (0.01-0.08) K/mm3 Manual Slide Review Not Reportable SARS-CoV-2 RNA (LIONEL) Negative (NEGATIVE) Result Diagrams: 01/13/20 18:40 Problem List Initiated/Reviewed/Updated: Yes Orders Last 24hrs: Active Orders 24 hr Category Date Time Status Patient Status [ADT] Routine ADT 01/13/20 16:56 Active Activity as Tolerated [RC] PFP Care 01/13/20 18:29 Active Communication Order [RC] ASDIRECTED Care 01/13/20 18:29 Active Heart Tones [RC] ASDIRECTED Care 01/13/20 18:29 Active Notify Provider [RC] PFP Care 01/13/20 18:29 Active Notify Provider [RC] PRN Care 01/13/20 18:29 Active Peripheral IV Care [RC] . DIRECTED Care 01/13/20 18:29 Active Vital Signs [RC] PER UNIT ROUTINE Care 01/13/20 16:56 Active Regular Diet [DIET] Diet 01/13/20 Dinner Active RAPID PLASMA REAGIN,RPR [CHEM] Routine Lab 01/13/20 18:40 Received Lactated Ringers [Ringers, Lactated] 1,000 ml Med 01/13/20 18:30 Active IV ASDIRECTED Nalbuphine [Nubain] Med 01/13/20 18:28 Active 10 mg IVPUSH Q2H PRN Oxytocin/Lactated Ringers [Pitocin in LR 10 Units/1,000 Med 01/13/20 18:30 Active ML] 10 unit in 1,000 ml IV .CONTINUOUS Sodium Chloride 0.9% [Saline Flush] Med 01/13/20 18:28 Active 10 ml FLUSH ASDIRECTED PRN Electronic Heart Tones Ext w TOCO [WOMSER] Oth 01/13/20 18:29 Ordered Routine Electronic Heart Tones Internal [WOMSER] Per Unit Oth 01/13/20 18:29 Ordered Routine Peripheral IV Insertion Adult [OM.PC] Routine Oth 01/13/20 18:29 Ordered Resuscitation Status Routine Resus Stat 01/13/20 16:56 Ordered Medication Orders Lactated Ringer's (Ringers, Lactated) 1,000 mls @ 100 mls/hr IV ASDIRECTED VALENCIA Oxytocin/Lactated Ringer's (Pitocin In Lr 10 Units/1,000 Ml) 10 unit in 1,000 mls @ 500 mls/hr IV .CONTINUOUS VALENCIA Nalbuphine HCl (Nubain) 10 mg IVPUSH Q2H PRN PRN Reason: Pain Sodium Chloride (Saline Flush) 10 ml FLUSH ASDIRECTED PRN PRN Reason: Keep Vein Open Assessment/Plan Comment:: 1. 39-5/7-week intrauterine , active labor with progressive cervical dilation 2. Risk factors for the include history of posttraumatic stress disorder, anxiety and depression symptoms related to traumatic head injury. 3. Group B strep screen negative 4. History of Marylu's disease. Now clinically and laboratory euthyroid 5. Normal 1 hour GTT 6. Patient desires natural labor 7. Patient plans to breast-feed. Plan: 1. Anticipate . 2. Support breast-feeding decision 3. Laboratory testing upon admission to consist of CBC, COVID-19, RPR per protocol. 4. Routine labor care.
[2020-01-13] MEDS ORDERED: Ibuprofen 600 MG Tab PO PRN (21:47)
[2020-01-13] MEDS ORDERED: Witch Hazel Medicated Pads 40/Jar TOP PRN (21:47)
[2020-01-13] MEDS ORDERED: Acetaminophen 325 MG Tab PO PRN (21:47)
[2020-01-13] MEDS ORDERED: Docusate Sodium 100 MG Cap PO PRN (21:47)
[2020-01-13] MEDS ORDERED: Benzocaine/Menthol 20%-0.5% Spray 56 GM Canister TOP PRN (21:47)
--- NOTE | 2020-01-13 21:48 | PCM.SN.2 ---
- Free Text/Narrative Note: delivery note: Eliza miller 1-year-old 3 para 1-0-1-1 white female who is presently at 9-5/7 weeks gestational age with an DANE of 01/15/2020 who is admitted in active labor with progressive cervical dilation. Already in labor approximately early a.m. on 01/13/2020. She has progressed throughout the day and upon admission was alex every 5 to 7 minutes, moderate intensity. She underwent artificial rupture membranes and thereafter rapidly progressed through labor. She became completely dilated at approximately 100 hours. At 2115 hours on 01/13/2020 patient delivered a viable, guzman, male infant with Apgars of 8/9, a weight of 3530 grams, (7 pounds, 12.5 ounces) and a length of 21.5 inches. There was a nuchal cord x1 which was loose and reduced over the baby's body with no problems. Baby delivered in a direct occiput anterior position. The baby was placed on mom's abdomen. He was dried and nose/mouth were bulb suction. Cord was allowed to pulsate for approximately 3 minutes plus. Pitocin was increased to 500 cc an hour to facilitate increase in uterine tone and decrease likelihood of uterine bleeding. The umbilical cord was then clamped x2 and cut by the baby's Father Magdaleno. There were 3 vessels in the umbilical cord. Blood was obtained. Patient was noted to have very small superficial perineal laceration which was repaired with a single subcuticular interrupted stitch of 3-0 Monocryl. No anesthetic was used. Patient tolerated this well. Placenta delivered at 1 hrs. in a [place] presentation. It appeared intact and complete and was discarded per patient desire. Estimated blood loss was 100 cc. Plans to breast-feed. Condition: Good
--- NOTE | 2020-01-14 07:34 | PCM.SN.2 ---
- Free Text/Narrative Note: note: Patient is doing well in the period. Minimal lochia, voiding well, ambulated without problems. Nursing without concerns. Patient is afebrile, vital signs are stable Abdomen is flat, soft, uterus is below the umbilicus and is firm and nontender. Legs are nontender. Assessment: recovery going well. Plan: Routine care. Patient be discharged home within the next 24-48 hours.
[2020-01-14] MEDS ORDERED: Prenatal Multivitamin with Calcium/Folic Acid/Iron Tab PO SCH (09:00)
--- NOTE | 2020-01-15 07:55 | PCM.DCSUM1 ---
Discharge Summary - Hospital Course Diagnosis: Stroke: No - Discharge Data Discharge Date: 01/15/20 Discharge Disposition: Home, Self-Care 01 Condition: Good - Referral to Home Health Primary Care Physician: Balbir Long MD - Patient Instructions Diet: Usual Diet as Tolerated Driving: May Drive Today Showering/Bathing: June Shower Notify Provider of: Fever - Discharge Plan *PRESCRIPTION DRUG MONITORING PROGRAM REVIEWED*: No *COPY OF PRESCRIPTION DRUG MONITORING REPORT IN PATIENT HARMAN: No Home Medications: Home Meds Calcium Carb/Magnesium Ox,Carb [David-Mag] 1 tab PO DAILY 08/12/18 [History] Fish Oil/[place]-3 Fatty Acids [Fish Oil 1,000 MG] 2 cap PO DAILY 08/12/18 [History] L.acidoph,Paracasei, B.lactis [Probiotic] 1 cap PO DAILY 08/12/18 [History] Pnv No.95/Ferrous Fum/Folic AC [ Tablet] 1 tab PO DAILY 08/12/18 [History] Acetaminophen [Tylenol] 650 mg PO Q6H PRN tablet 08/13/18 [Rx] Patient Handouts: and Self-Care, Care After Vaginal Delivery Referrals: Balbir Long MD [Primary Care Provider] - - Discharge Summary/Plan Comment DC Time >30 min.: No - Patient Data Vitals - Most Recent: Last Vital Signs Temp 36.4 C 01/15/20 02:09 Pulse 65 01/15/20 02:09 Resp 16 01/15/20 02:09 BP 115/73 01/15/20 02:09 Pulse Ox 95 01/15/20 02:09 Weight - Most Recent: 80.331 kg I&O - Last 24 hours: Intake & Output 01/14/20 01/15/20 01/15/20 22:59 06:59 14:59 Intake Total 180 Balance 180 Med Orders - Current: Current Medications Acetaminophen (Tylenol) 650 mg PO Q4H PRN PRN Reason: mild pain or fever Benzocaine/Menthol (Dermoplast Pain Relief Elliott) 0 gm TOP ASDIRECTED PRN PRN Reason: Perineal Comfort Measure Last Admin: 01/13/20 22:17 Dose: 1 can Documented by: Docusate Sodium (Colace) 100 mg PO BID PRN PRN Reason: Constipation Ibuprofen (Motrin) 600 mg PO Q4H PRN PRN Reason: Mild pain or fever Prenat Multivit/Program Support Assistant/Iron/Folic Ac ( Plus Iron) 1 each PO DAILY VALENCIA Kerry [employer] (oRbins) 1 pad TOP ASDIRECTED PRN PRN Reason: Perineal Comfort Measure Last Admin: 01/13/20 22:18 Dose: 1 container Documented by: Discontinued Medications Lactated Ringer's (Ringers, Lactated) 1,000 mls @ 100 mls/hr IV ASDIRECTED VALENCIA Oxytocin/Lactated Ringer's (Pitocin In Lr 10 Units/1,000 Ml) 10 unit in 1,000 mls @ 500 mls/hr IV .CONTINUOUS VALENCIA Last Admin: 01/13/20 21:15 Dose: 500 mls/hr Documented by: Nalbuphine HCl (Nubain) 10 mg IVPUSH Q2H PRN PRN Reason: Pain Sodium Chloride (Saline Flush) 10 ml FLUSH ASDIRECTED PRN PRN Reason: Keep Vein Open
== END 2020-01-15 13:06 | disposition home or self-care (01) | DRG 807 ==
LOC: JD.OBCHECK 16:05 → JD.OB 16:10 → JD.OBCHECK 19:32 → OBSVTOIN 21:15 → JD.OB 21:16
PROVIDERS: ADMIT Obstetrics & Gynecology; ATTEND Obstetrics & Gynecology
PROC: 10E0XZZ Delivery of Products of Conception, External Approach (ICD-10-PCS; principal; 2020-01-13)
PROC: 10907ZC Drainage of Amniotic Fluid, Therapeutic from Products of Conception, Via Natural or Artificial Opening (ICD-10-PCS; 2020-01-13)
PROC: 0HQ9XZZ Repair Perineum Skin, External Approach (ICD-10-PCS; 2020-01-13)
DX: O69.81X0 Labor and delivery complicated by cord around neck, without compression, not applicable or unspecified (principal); Z37.0 Single live birth; O99.62 Diseases of the digestive system complicating childbirth; Z20.828 Contact with and (suspected) exposure to other viral communicable diseases; H54.7 Unspecified visual loss; K59.09 Other constipation; O99.892 Other specified diseases and conditions complicating childbirth; O70.0 First degree perineal laceration during delivery; Z3A.39 39 weeks gestation of pregnancy; Z91.040 Latex allergy status; Z91.041 Radiographic dye allergy status; Z88.8 Allergy status to other drugs, medicaments and biological substances; Z79.899 Other long term (current) drug therapy
CPT/HCPCS: 36415; 59025; 59409; 85025; 86592; A9270-GY; J2590; U0002

== ENCOUNTER 2021-04-24 07:03 | Inpatient (IN) | payer BC ==
[2021-04-24] MEDS ORDERED: Sodium Chloride 0.9% 10 ML Syringe FLUSH PRN (07:52)
[2021-04-24] MEDS ORDERED: Lidocaine 1% 50 ML MDV INJECT PRN (07:52)
[2021-04-24] MEDS ORDERED: Nalbuphine 10 MG/1 ML Vial IVPUSH PRN (07:52)
[2021-04-24] MEDS ORDERED: Oxytocin/Lactated Ringers 10 UNIT/1,000 ML BAG IV SCH ×2 (08:00)
[2021-04-24] MEDS ORDERED: Lactated Ringers 1,000 ML IV SCH (08:00)
[2021-04-24] MEDS ORDERED: Sodium Chloride 0.9% 10 ML Syringe FLUSH SCH (09:00)
[2021-04-24] MEDS ORDERED: Docusate Sodium 100 MG Cap PO PRN (18:31)
[2021-04-24] MEDS ORDERED: Benzocaine/Menthol 20%-0.5% Spray 78 GM Cannister TOP PRN (18:31)
[2021-04-24] MEDS ORDERED: Witch Hazel Medicated Pads 40/Jar TOP PRN (18:31)
[2021-04-24] MEDS ORDERED: Acetaminophen 325 MG Tab PO PRN (18:31)
[2021-04-24] MEDS: Ibuprofen 600 MG Tab PO PRN (22:43)
[2021-04-25] MEDS: Ibuprofen 600 MG Tab PO PRN ×3 (03:36→15:16)
[2021-04-25] MEDS ORDERED: Prenatal Multivitamin with Calcium/Folic Acid/Iron Tab PO SCH (09:00)
== END 2021-04-25 19:45 | disposition home or self-care (01) | DRG 560 ==
LOC: JD.OB 07:03 → OBSVTOIN 17:56 → JD.OB 17:57
PROVIDERS: ADMIT Obstetrics & Gynecology; ATTEND Obstetrics & Gynecology
PROC: 10E0XZZ Delivery of Products of Conception, External Approach (ICD-10-PCS; principal; 2021-04-24)
PROC: 10907ZC Drainage of Amniotic Fluid, Therapeutic from Products of Conception, Via Natural or Artificial Opening (ICD-10-PCS; 2021-04-24)
PROC: 3E033VJ Introduction of Other Hormone into Peripheral Vein, Percutaneous Approach (ICD-10-PCS; 2021-04-24)
DX: O77.0 Labor and delivery complicated by meconium in amniotic fluid (principal); Z37.0 Single live birth; Z3A.39 39 weeks gestation of pregnancy; O24.429 Gestational diabetes mellitus in childbirth, unspecified control; O99.62 Diseases of the digestive system complicating childbirth; K59.09 Other constipation; Z20.822 Contact with and (suspected) exposure to COVID-19; Z86.16 Personal history of COVID-19; Z91.040 Latex allergy status; Z91.041 Radiographic dye allergy status
CPT/HCPCS: 36415; 59025; 59409; 85025; 86592; A9270-GY; J2590; J7120; U0002